=== PATIENT | male | born 1980 | race African-American/Black ===

== ENCOUNTER 2023-11-03 11:10 | Emergency (ER) | payer OTHER, SELFPAY ==
[2023-11-03 11:13] VITALS: BP 113/75
[2023-11-03 12:02] LABS: ALT (SGPT) 28 U/L (0-50); AST (SGOT) 25 U/L (17-59); Albumin 4.5 g/dl (3.5-5.0); Alkaline Phosphatase 63 U/L (38-126); Blood Urea Nitrogen 15 mg/dl (9-20); Calcium 9.5 mg/dl (8.4-10.2); Carbon Dioxide 24 mmol/L (22-30); Chloride 101 mmol/L (98-107); Glucose 106 mg/dl (70-99); Lipase 93 U/L (23-300); Sodium 138 mmol/L (135-145); Total Bilirubin 1.3 mg/dl (0.2-1.3); Total Protein 7.6 g/dl (6.3-8.2); eGFR > 60.00
[2023-11-03 12:48] VITALS: BP 113/65; BMI 27.6
[2023-11-03 12:49] VITALS: BP 113/65
[2023-11-03 13:00] VITALS: BP 113/68
[2023-11-03] MEDS: NSS 1000 IV (13:03)
[2023-11-03 14:13] VITALS: BP 117/75
[2023-11-03 14:29] LABS: Urine Albumin Trace (Neg - Trace); Urine Bilirubin 1+ (Negative); Urine Character Clear (Clear); Urine Color Yellow; Urine Glucose Negative (Negative); Urine Ketone 1+ (Negative); Urine Leukocyte Negative (Negative); Urine Nitrite Negative (Negative); Urine Occult Blood Trace (Negative); Urine Specific Gravity 1.025 (<1.030); Urine Urobilinogen Negative (Neg - 1+)
--- NOTE | 2023-11-03 14:43 | ED.GENMED ---
Addendum entered and electronically signed by Michael Rose PA-C 11/06/23 08:24:
Stool culture demonstrates positive results for Campylobacter species. The patient was empirically treated with Cipro. No indication for any intervention. Attempted to call patient to relay this information however there is no answer left message
to call back
Original Note:
History of Present Illness
General
Chief Complaint: Abdominal Symptoms
Source: patient
Exam Limitations: none
Time Seen by Provider: 11/03/23 12:29
Nursing documentation reviewed up to this point in time: agreed with
History of Present Illness
History of Present Illness:
The patient is a 43-year-old man who reports that he has had almost 4 days of bodyaches, low-grade fever, and ongoing watery nonbloody diarrhea. Patient denies sick contacts. He denies recent antibiotic use. He denies recent travel history.
Patient reports he went to urgent care and was referred to emergency department for possible CAT scan. Patient reports he has had ongoing pain in his right lower abdomen. He denies vomiting.
Past History
Past History
ED Past Medical History: Other
ED Past Surgical History: Other
Social History
Tobacco: Other
Alcohol: Other
Drug: None
Personal: Other
Living: with family
Employment: Employed
Family History
Family History: Other
Review of Systems
Review of Systems
Allergies reviewed?: Yes
All Other Systems: ROS reviewed and negative except as documented in HPI and ROS
Constitutional: Reports fatigue and chills
EENT: Reports no symptoms
Respiratory: Reports no symptoms
Cardiac: Reports no symptoms
ABD/GI: Reports abdominal pain, diarrhea and anorexia
: Reports no symptoms
Musculoskeletal: Reports muscle stiffness and back pain
Skin: Reports no symptoms
Neurological: Reports no symptoms
Endocrine: Reports no symptoms
Hematologic/Lymphatic: Reports no symptoms
Psychiatric: Reports no symptoms
Phy Exam
Physical Exam
Physical Exam:
Physical Exam
General: no apparent distress, not acutely ill
Neck: supple. no meningeal signs. normal psoterior pharynx
Heart: s1/s2 regular rate and rhythm, no murmur. equal radial pulses.
Lungs: no acute respiratory distress. clear bilaterally
Abdomen: Soft. Mildly distended. Normal bowel sounds. Mild right lower quadrant tenderness without rebound or guarding.
Neuro: alert and oriented. no focal neurological deficits
Skin: no rash
Psychiatric: well kept. interactive and cooperative
Extremities: no edema. no calf tenderness. negative homans. good distal pulses
Course
Orders/Labs/Results
Orders:
Orders
11/03/23 11:21
Comprehensive Metabolic Panel Urgent
Lactic Acid Urgent
Lipase Urgent
11/03/23 12:41
CT Abd/pelvis W Iv Cont Urgent
Comment:
Reason For Exam: RLQ pain, diarrhea
11/03/23 12:42
0.9% Sodium Chloride 1000 ml [Nss] 1,000 ml IV BOLUS
11/03/23 14:19
UA Reflex to Culture [Urinalysis Reflex To Culture] Urgent
Date Specimen was Collected: 11/03/23
Time Specimen was Collected: 14:16
Urine Microscopic Reflex Cult Urgent
STOOL [C difficile Antigen & Toxins] Urgent
[facility] Source: Feces/Stool
Specimen Description:
Date Specimen was Collected: 11/03/23
Time Specimen was Collected: 14:16
Stool Culture Urgent
HUGO Source: Feces/Stool
Specimen Description:
Date Specimen was Collected: 11/03/23
Time Specimen was Collected: 14:16
11/03/23 15:41
Ciprofloxacin HCl [Cipro] 500 mg PO NOW STA
Abnormal Lab Results
11/03/23 11/03/23
11:21 14:19
Glucose 106 H mg/dl
(70-99)
Urine Ketones 1+ A
(Negative)
Ur Occult Blood Reflex Trace A
(Negative)
Urine Bilirubin 1+ A
(Negative)
Urine Bacteria (Reflex) Few A
(Negative)
11/03/23 12:41
11/03/23 11:21
Vital Signs
Initial and Last Documented VS:
Initial Vital Signs
Temp Pulse Resp BP Pulse Ox
98.9 F 87 20 113/75 98
11/03/23 11:13 11/03/23 11:13 11/03/23 11:13 11/03/23 11:13 11/03/23 11:13
Last Documented Vital Signs
Temp Pulse Resp BP Pulse Ox
98.9 F 75 16 123/68 96
11/03/23 11:13 11/03/23 16:16 11/03/23 16:16 11/03/23 16:16 11/03/23 16:16
MDM/Problems Addressed
Differential Diagnosis Includes:
Viral enteritis, bacterial enteritis, acute appendicitis
MDM/Problems Addressed:
Patient presents with acute abdominal pain and diarrhea
*Radiology
Radiology exam reviewed: radiology read reviewed
*Pulse Oximetry
Patient hypoxic: no
*EKG
Interpreted by ED Provider?: NA
*[facility] Counter Attendant Interpretation
Rate: normal
Interpretation: normal
Rhythm: sinus
*Critical Care Note
Total Time (30-74mins, 75-104mins- exclusive of procedures): Not Applicable
Data Reviewed
Source: patient
Patient Management
Social determinants of health affecting care: Living situation and Strong social support
Escalation/DeEscalation of care consider admission/obs:
Patient appears nontoxic. CT shows no sign of acute appendicitis. Given patient has had ongoing symptoms for 4 days, decision made to treat patient with Cipro. Given CT shows possible signs of inflammatory bowel disease, decision made to leave a
message on gastroenterology [facility] text for follow-up
ED Attending Note
-
Portions of this chart may have been created with voice recognition software.� Occasional wrong word or��sound alike� substitutions may have occurred due to the inherent limitations of voice recognition software.
Discharge Plan
Departure
Patient Disposition: Home (Routine Discharge)
Date of Disposition: 11/03/23
Time of Disposition: 15:42
Patient with high blood pressure during this ER visit?: No
Condition: Good
Covid-19: Not Applicable
Discharge Problem:
Colitis
Instructions: Colitis, Clear Liquid Diet, [place] Diet
Prescriptions:
New
ciprofloxacin HCl [Cipro] 500 mg tablet
500 mg PO BID Qty: 13 0RF
Referrals:
Alexander Gutierres DO [Family Provider] -
Latricia Sanchez MD [Active] -
Activity Restrictions/Additional Instructions:
Maintain a clear liquid diet until your pain and diarrhea are gone. After that, please stick with a bland diet for at least 1 week.
If you do not hear by the hoist worker office within 3 to 4 days, please call them.
Take 600 mg of ibuprofen/Advil every 6-8 hours for pain.
Start a probiotic to take for at least 1 week. This could be bought [id number] at a pharmacy.
Interventions
Interventions:
*Risk Screen - Suicide Last Done: 11/03/23 12:48
*General Assessment Last Done: 11/03/23 11:13
*Neglect/Abuse Screening Last Done: 11/03/23 12:48
ED- Fall Risk Assessment Last Done: 11/03/23 12:48
*ED COVID-19 Vaccine History Last Done: 11/03/23 12:48
*Nursing Disposition Last Done: 11/03/23 16:18
XK-Allcho-Irrtdbtrbu Assessment Last Done: 11/03/23 12:48
Discharge Date and Time
Discharge Date/Time: 11/03/23 16:18
Print Language: SAMMARINESE
[2023-11-03 14:53] LABS: Urine Mucus Many; Urine Squamous Cell 0-2 /LPF (Few)
[2023-11-03 14:54] LABS: Urine Bacteria Few (Negative); Urine Red Blood Cell 0-2 /HPF (0-2); Urine White Cell 0-2 /HPF (0-5)
[2023-11-03] MEDS: CIPRO 500 MG PO (16:08)
[2023-11-03 16:16] VITALS: BP 123/68
== END 2023-11-03 16:18 | disposition home or self-care (01) ==
LOC: EMR 11:10
PROVIDERS: Emergency Medicine; EMERGENCY PHYSICIAN Emergency Medicine; FAMILY PHYSICIAN Family Medicine
DX: K52.9 Noninfective gastroenteritis and colitis, unspecified (principal)
CPT/HCPCS: 99284; 96360; 74177; 80053; 81003; 81015; 83605; 83690; 87045; 87046; 87077; 87324; 87427; 87449; Q9967